=== PATIENT | male | born 2000 | race Two or more races ===

== ENCOUNTER 2024-12-30 09:57 | Outpatient (CLI) | payer OTHER | END 2024-12-30 10:03 | disposition home or self-care (01) | LOC: RAD 09:57 | PROVIDERS: ATTEND Orthopaedic Surgery | DX: S92.411A Displaced fracture of proximal phalanx of right great toe, initial encounter for closed fracture (principal); X58.XXXA Exposure to other specified factors, initial encounter; Y93.9 Activity, unspecified; Y92.9 Unspecified place or not applicable; Y99.9 Unspecified external cause status ==